=== PATIENT | female | born 1985 | race Caucasian/White ===

== ENCOUNTER → 2016-04-12 | Outpatient (CLI) | payer OTHER ==
--- NOTE | 2016-04-12 14:47 | US ---
April 12, [address] Cano, Thank you for requesting consultation and a ultrasound to evaluate anatomy for your patient, Ms. Hermosillo. As you know, Brigida is a 30 year old G 1, P 0 with a [place] pregn gila dating 19 w 4 d; MATT of 09/02/16 by first trimester ultrasound. She had reassuring NIPT and MSA FP screening. ULTRASOUND Number of fetuses: 1 Placental location: Anterior; no evidence of previa Placental cord insertion: Intraplacental presentation: Cephalic Cervix: 4.4 cm viewed transabdominally Maximum Vertical Pocket: 4.1 cm The adnexa were evaluated. No pathology was seen. Right ovary is visualized and seen as normal. It measures 3.0 x 2.4 x 1.5 cm. Left ovary is visualized and seen as normal. It measures 3.6 x 3.4 x 2.0 cm. There is also an unresol sloane corpus luteum.. MEASUREMENTS: Biparietal diameter: 49 mm 21 weeks, 0 days Head circumference: 181 mm 20 weeks, 4 days Abdominal circumference: 150 mm 20 weeks, 2 days Femur length: 33 mm 20 weeks, 3 days Humerus length: 32 mm 20 weeks, 5 days Transcerebellar diameter: 21 mm 19 weeks, 6 days Average ultrasound age: 20 weeks, 4 days Estimated weight: 349 gm weight percentile: 87% ANATOMY Supratentorial brain: Normal including views of the falx, cavum septum pellucidum and choroids Lateral Ventricle: Normal, measuring 4.6 mm Posterior fossa: Normal including the cerebellum and cisterna magna Spine: Normal Nuchal fold: 2.4 mm normal Face: Normal views of the lip and nose area Profile: Limited without overt abnormality Palate: Normal appearance of the alveolar ridge Heart: Normal four chamber view and the outflow tracts are seen appropriately oriented and crossing. 3VV and aortic arch are normal in appearance. Heart Rate 133 bpm Diaphragm: Normal appearance without overt abnormality detected Stomach: Normal Umbilical cord insertion: Normal Right kidney: Normal Left kidney: Normal Bladder: Normal Number of cord vessels: Three Upper extremities: Normal Lower extremities: Normal Gender: Male IMPRESSION: 1. Intrauterine at 19 w 4 d, ultrasound is consistent with her established MATT of 09/02/16 . 2. Normal anatomical survey. 3. Cervical length is normal at 4.4 cm without evidence of insufficiency. RECOMMENDATIONS: I was pleased to review today's ultrasound with your patient and the father of the baby. I reassured them that the baby is growing appropriately with normal amniotic fluid volume. Our detailed review of the anatomy did not reveal any overt abnormalities. Future ultrasound and consultation is left to your clinical discretion. Thank you for allowing us the opportunity to evaluate your patient. Should you have any further ques tions or concerns please do not hesitate to contact me. No E&M. Cara Acharya MD Manager Of Change Maternal Medicine Diagnosis Department of Obstetrics & Gynecology [facility] ([place], [place])
--- NOTE | 2016-04-12 17:27 | US ---
Complete Obstetric Ultrasound History: 30-year-old with estimated gestational age of 19 weeks 4 days and EDC of September 02, 2016. Comparison: OB ultrasound February 26, 2016. Findings: Number: 1 Presentation: Vertex Placental location: Anterior. No previa. Cervix: Closed, measuring 4.4 cm transabdominally Maximum vertical pocket: 4.1 cm The ovaries are normal. Biometry: Biparietal diameter: 49 mm 21 weeks, 0 days Head circumference: 181 mm 20 weeks, 4 days Abdominal circumference: 150 mm 20 weeks, 2 days Femur length: 33 mm 20 weeks, 3 days Humerus length: 32 mm 20 weeks, 5 days Transcerebellar diameter: 21 mm 19 weeks, 6 days Average ultrasound age: 20 weeks, 4 days EDC based on today's average ultrasound age: August 26, 2016. Estimated weight is 349 gms +/- 51 gms. The estimated weight percentile is 87 % based on previous dating. ANATOMY SURVEY: Supratentorial brain: Normal Posterior fossa: Normal Spine: Normal Nose and lips: Normal Heart: Four chamber heart with heart rate of 133. The outflow tracts are normal. Stomach: Normal Umbilical cord insertion: Normal Kidneys: Normal Bladder: Normal Number of cord vessels: Three Upper extremities: Normal Lower extremities: Normal Impression: 1. Living single intrauterine with size concordant with dates. 2. Unremarkable anatomy. Please see separate dictation for consultation performed by Cara Acharya MD, the same day.
== END ==
LOC: FIMAGING 13:38
PROVIDERS: ATTEND Obstetrics & Gynecology
DX: Z36 Encounter for antenatal screening of mother (principal); Z3A.19 19 weeks gestation of pregnancy